=== PATIENT | male | born 1975 | race Two or more races ===

== ENCOUNTER 2021-02-27 20:58 | Emergency (ER) | payer BC ==
[~2021-02-27] VITALS: Ht 182.9 cm; Wt 86.2 kg
[2021-02-27 20:58] VITALS: BP 152/100
[2021-02-27] MEDS ORDERED: KETOROLAC TROMETH 60MG/2ML VIAL IM ONE (21:30)
== END 2021-02-27 22:47 | disposition home or self-care (01) ==
LOC: ER 21:01
DX: S46.912A Strain of unspecified muscle, fascia and tendon at shoulder and upper arm level, left arm, initial encounter (principal); E11.9 Type 2 diabetes mellitus without complications; W18.39XA Other fall on same level, initial encounter; Y93.89 Activity, other specified; Y92.89 Other specified places as the place of occurrence of the external cause; Y99.8 Other external cause status
CPT/HCPCS: 73030; 96372; 99283; J1885

== ENCOUNTER 2021-03-07 08:23 | Emergency (ER) | payer BC ==
[~2021-03-07] VITALS: Ht 185.4 cm; Wt 86.2 kg
[2021-03-07] MEDS ORDERED: KETOROLAC TROMETH 60MG/2ML VIAL IM ONE (09:45)
[2021-03-07 10:01] VITALS: BP 142/88
== END 2021-03-07 10:16 | disposition home or self-care (01) ==
LOC: ER 08:23
DX: S46.002A Unspecified injury of muscle(s) and tendon(s) of the rotator cuff of left shoulder, initial encounter (principal); E11.9 Type 2 diabetes mellitus without complications; X58.XXXA Exposure to other specified factors, initial encounter; Y93.89 Activity, other specified; Y92.89 Other specified places as the place of occurrence of the external cause; Y99.8 Other external cause status
CPT/HCPCS: 96372; 99283; J1885

== ENCOUNTER 2024-08-11 09:27 | Emergency (ER) | payer OTHER, BC ==
[~2024-08-11] VITALS: Ht 182.9 cm; Wt 84.5 kg
[2024-08-11 10:00] VITALS: TEMP 97.5; O2SAT 98
[2024-08-11] MEDS: MORPHINE SULFATE INJ 2 MG/ml SYRG IM ONE (10:37)
[2024-08-11 11:10] VITALS: BP 129/84; PULSE 121; RESP 20
[2024-08-11] MEDS ORDERED: NAP500T PO (11:11)
[2024-08-11] MEDS ORDERED: CYCL-839 PO (11:11)
== END 2024-08-11 11:25 | disposition home or self-care (01) ==
LOC: ER 09:27
DX: M54.2 Cervicalgia (principal); M25.511 Pain in right shoulder; M54.59 Other low back pain; E11.9 Type 2 diabetes mellitus without complications
CPT/HCPCS: 70450; 72040; 72110; 96372; 99285; J2270